=== PATIENT | male | born 1950 | race Asian ===

== ENCOUNTER 2019-02-16 11:30 | Inpatient (IN) | payer MEDICARE ==
[~2019-02-16] VITALS: Ht 162.6 cm; Wt 96.2 kg
--- NOTE | 2019-02-16 11:42 | NUR ---
mari, c/o bloody stool and diarrhea since yesterday, PT AWAKE, ALERT, -SOB, NAD NTOED, VSS, PENDING MD CUELLO
[2019-02-16] MEDS ORDERED: PANTOPRAZOLE 40 MG VIAL IV ONE (12:30)
[2019-02-16] MEDS ORDERED: IV NS 0.9% 1,000 ML BAG IV ONE (12:30)
[2019-02-16] MEDS ORDERED: ONDANSETRON HCL/PF 4 MG/2 ML VIAL IVP ONE (12:30)
[2019-02-16] MEDS ORDERED: ONDANSETRON HCL/PF 4 MG/2 ML VIAL ONE (12:36)
[2019-02-16] MEDS ORDERED: PANTOPRAZOLE 40 MG VIAL ONE (12:36)
[2019-02-16 12:42] LABS: BASOPHILS % (AUTO) 0.6 % (0.0-2.0); EOSINOPHILS % (AUTO) 5.1 % (0.0-6.0); HEMATOCRIT 36 % (39-51); HEMOGLOBIN 12.1 g/dL (13.5-17.5); LYMPHOCYTES # (AUTO) 1.3 /CMM (0.8-4.8); LYMPHOCYTES % (AUTO) 37.2 % (20.0-44.0); MEAN CORPUSCULAR HGB CONC 33 g/dl (31.0-36.0); MEAN CORPUSCULAR VOLUME 89 fL (80-96); MONOCYTES # (AUTO) 0.4 /CMM (0.1-1.30); NEUTROPHILS # (AUTO) 1.6 /CMM (1.8-8.9); NEUTROPHILS % (AUTO) 45.1 % (43.0-81.0); PLATELET COUNT (AUTO) 155 /CMM (150-450); RED BLOOD CELL COUNT(AUTO) 4.09 MIL/uL (4.5-6.0); WHITE BLOOD COUNT (AUTO) 3.5 K/uL (4.3-11.0)
[2019-02-16 12:55] LABS: CREATININE 1.2 mg/dL (0.6-1.3); POTASSIUM 3.9 mmol/L (3.5-5.1)
[2019-02-16 12:58] LABS: OCCULT BLOOD STOOL POSITIVE (NEGATIVE)
[2019-02-16 13:00] LABS: ALBUMIN 2.9 g/dL (3.4-5.0); BILIRUBIN,DIRECT 0.1 mg/dL (0.0-0.2); BILIRUBIN,TOTAL 0.2 mg/dL (0.2-1.0); TOTAL PROTEIN, SERUM 6.3 g/dL (6.4-8.2)
[2019-02-16] MEDS ORDERED: FEBU40TA3 PO (13:29)
[2019-02-16] MEDS ORDERED: TAMS-12 PO (13:29)
[2019-02-16] MEDS ORDERED: OLME40TA18 PO (13:29)
[2019-02-16] MEDS ORDERED: OMEP-293 PO (13:29)
[2019-02-16] MEDS ORDERED: AMLO5TAB9 PO (13:29)
--- NOTE | 2019-02-16 14:49 | NUR ---
CALLED [employer]. ANALYTICAL STATISTICIAN WAS PAGED.
--- NOTE | 2019-02-16 14:54 | NUR ---
CALLED [facility] FOR TELE BED
[2019-02-16] MEDS ORDERED: Z GUARD REMEDY 2 OZ OINT TP PRN (15:30)
[2019-02-16] MEDS ORDERED: MAG HYDROX/AL HYDROX/SIMETH 30 ML UDC PO PRN (15:30)
[2019-02-16] MEDS ORDERED: ONDANSETRON HCL/PF 4 MG/2 ML VIAL IVP PRN (15:30)
[2019-02-16] MEDS ORDERED: MAGNESIUM HYDROXIDE 30 ML UDC PO PRN (15:30)
[2019-02-16] MEDS ORDERED: ACETAMINOPHEN 325 MG TABLET PO PRN (15:30)
[2019-02-16] MEDS ORDERED: HYDROCODONE/APAP 5/325MG 1 EACH TABLET PO PRN (15:30)
--- NOTE | 2019-02-16 15:38 | NUR ---
report given to may
--- NOTE | 2019-02-16 15:49 | NUR ---
transported to [facility]
[2019-02-16 15:55] VITALS: BP 148/85
--- NOTE | 2019-02-16 16:30 | NUR ---
MS COSMETIC SALES ASSISTANT NOTES RECEIVED PT FROM ER DEPT VIA WHEELCHAIR. PT ORIGINALLY FROM HOME. PT A/O X4, MANDARIN SPEAKING, BUT CAN UNDERSTAND AND SPEAK MONGOLIAN. AMBULATORY. PT TOLERATING RA, WITH NO ACUTE RESPIRATORY DISTRESS NOTED. PT DENIES ANY PAIN OR DISCOMFORT AT THIS TIME. PIV TO LAC G20, FLUSHED WITH NS, INTACT AND OPERATIONAL. PT ALSO DENIES ANY CONCERNS OR QUESTIONS. PT ABLE TO PROVIDE MEDICAL HISTORY AND ADMISSION INFORMATION. PT ORIENTED TO THE STAFF, ROOM, MEAL TIMES, ETC. PT KEPT COMFORTABLE. CALL LIGHT AND FLUIDS KEPT WITHIN REACH. PT'S BED IN LOWEST, LOCKED POSITION WITH SR X3. ADMITTING MD/KR MADE AWARE OF NEW PT AND AWAITING FOR ADMISSION ORDERS. WILL CONTINUE PLAN OF CARE.
--- NOTE | 2019-02-16 16:53 | NUR ---
MS RN NOTES SKIN ASSESSED, INTACT. NO PICTURES TAKEN AND FILED IN THE CHART.
--- NOTE | 2019-02-16 18:34 | NUR ---
MS RN CLOSING NOTES PT A/O X4, MANDARIN SPEAKING, BUT CAN UNDERSTAND AND SPEAK FAROESE. AMBULATORY. PT TOLERATING RA, WITH NO ACUTE RESPIRATORY DISTRESS NOTED. PT DENIES ANY PAIN OR DISCOMFORT AT THIS TIME. PIV TO LAC G20, FLUSHED WITH NS, INTACT AND OPERATIONAL. PT KEPT COMFORTABLE. ALL NEEDS AND CARE ATTENDED. CALL LIGHT AND FLUIDS KEPT WITHIN REACH. PT'S BED IN LOWEST, LOCKED POSITION WITH SR X3. WILL ENDORSE TO INCOMING NIGHT NURSE FOR OMID.
--- NOTE | 2019-02-16 19:15 | NUR ---
MS RN PM OPENING NOTES BEDSIDE REPORT RECIEVED FROM KRYSTAL CASANOVA. PT A/O X4, AWAKE IN BED. REVIEWED POC. PATIENT HAD ONE BM BEFORE ADMISSION IN ER THAT TESTED POSITIVE FOR OB PT WAS ADMITTED TODAY FOR UPPER GI BLEED. PT MANDARIN SPEAKING, BUT SPEAKS/UNDERSTANDS ARMENIAN. PT AMBULATORY DENIES THAT HE GETS DIZZY OR LIGHT HEADED DURING AMBULATION. PT TOLERATING RA, WITH NO ACUTE RESPIRATORY DISTRESS NOTED. VERBALIZED UNDERSTANDING TO CALL FOR ASSISTANCE NEEDED. BED DOWN LOCKED SR X2. WILL CONT TO MONITOR.
[2019-02-16 20:00] VITALS: BP 123/78
[2019-02-16] MEDS: PANTOPRAZOLE 40 MG VIAL IV SCH (21:04)
[2019-02-16] MEDS: IV NS 0.9% 1,000 ML IV PRN (21:09)
[2019-02-17 06:30] LABS: BASOPHILS % (AUTO) 0.2 % (0.0-2.0); HEMATOCRIT 34 % (39-51); HEMOGLOBIN 11.4 g/dL (13.5-17.5); LYMPHOCYTES # (AUTO) 1.2 /CMM (0.8-4.8); LYMPHOCYTES % (AUTO) 35.4 % (20.0-44.0); MEAN CORPUSCULAR HGB CONC 33 g/dl (31.0-36.0); MEAN CORPUSCULAR VOLUME 88 fL (80-96); MONOCYTES # (AUTO) 0.3 /CMM (0.1-1.30); MONOCYTES % (AUTO) 9.3 % (2.0-12.0); NEUTROPHILS # (AUTO) 1.6 /CMM (1.8-8.9); NEUTROPHILS % (AUTO) 49.1 % (43.0-81.0); PLATELET COUNT (AUTO) 155 /CMM (150-450); RED BLOOD CELL COUNT(AUTO) 3.86 MIL/uL (4.5-6.0); WHITE BLOOD COUNT (AUTO) 3.3 K/uL (4.3-11.0)
--- NOTE | 2019-02-17 06:47 | NUR ---
MS RN CLOSING NOTES PT A/O X4, AWAKE IN BED. REVIEWED POC. PATIENT DENIES HAVING ANY BM LAST NIGHT DURING MY SHIFT. PT MANDARIN SPEAKING, BUT SPEAKS/UNDERSTANDS MONTSERRATIAN. PT AMBULATORY. PT TOLERATING RA, WITH NO ACUTE RESPIRATORY DISTRESS NOTED. PT DENIES ANY PAIN OR DISCOMFORT AT THIS TIME. PIV TO LAC G20, RUNNING NS AT 75ML/HR WITH NO S/S OF INFILTRATION. CALL LIGHT AND FLUIDS KEPT WITHIN REACH. BED IN LOWEST, LOCKED POSITION WITH SR X2. WILL ENDORSE TO DAY SHIFT FOR OMID. .
[2019-02-17 06:59] LABS: CREATININE 1.2 mg/dL (0.6-1.3); PHOSPHORUS 2.9 mg/dL (2.5-4.9); POTASSIUM 3.8 mmol/L (3.5-5.1)
--- NOTE | 2019-02-17 07:00 | NUR ---
MS/RN Opening note Received patient AOx4, able to response all stimuli, denies any n/v, or discomfort. No s/s of dehydration observed. Skin is dry and warm to touch, intact IV site, respiratory even unlabored, kept low bed position with elevated HOB. Call light within reach, will continue to monitor.
[2019-02-17 08:18] VITALS: BP 114/80
[2019-02-17] MEDS: PANTOPRAZOLE 40 MG VIAL IV SCH (09:12)
--- NOTE | 2019-02-17 10:00 | NUR ---
Patient went to EGD, who signed consent of EGD and anesthesia, denies pain or discomfort in stable condition.
--- NOTE | 2019-02-17 11:15 | NUR ---
Pt came back from EGD procedure, v/s: t-98.5, bp-136/68, p-68, r-20 , denies pain or discomfort, in stable condition.
[2019-02-17] MEDS: IV NS 0.9% 1,000 ML IV PRN (12:03)
--- NOTE | 2019-02-17 15:30 | NUR ---
MS RN NOTES PATIENT REQUESTING TO BE DISCHARGE HOME STATES HE HAS A FLIGHT TO CATCH TOMORROW MORNING. DR. CASTILLO MADE AWARE ORDERS RECEIVED TO DISCHARGE PATIENT HOME WITH PRESCRIPTION OF PROTONIX 40MG DAILY #30. NOTED AND CARRIED OUT. DIETARY CONSULT REQUESTED FOR EDUCATION ON THE DIET TO BE FOLLOWED HOME.
[2019-02-17 16:03] VITALS: BP 100/68
--- NOTE | 2019-02-17 16:30 | NUR ---
Given discharge instruction include poultry picker prescription, diet, follow up primary MD using teach back technique, pt verbally understanding. Denies pain or discomfort, respiratory even, unlabored. Pt left facility accompanied by son and staff to the private car, refused ride on wheel chair.
== END 2019-02-17 16:30 | disposition home or self-care (01) | DRG 377 ==
LOC: ER 11:35 → TELE 15:33 → MED 16:20
PROVIDERS: ADMIT Internal Medicine; ATTEND Internal Medicine
PROC: 0DB68ZX Excision of Stomach, Via Natural or Artificial Opening Endoscopic, Diagnostic (ICD-10-PCS; principal; 2019-02-17)
DX: K26.4 Chronic or unspecified duodenal ulcer with hemorrhage (principal); N17.0 Acute kidney failure with tubular necrosis; D62 Acute posthemorrhagic anemia; K29.70 Gastritis, unspecified, without bleeding; D64.9 Anemia, unspecified; I10 Essential (primary) hypertension; N40.0 Benign prostatic hyperplasia without lower urinary tract symptoms; K21.9 Gastro-esophageal reflux disease without esophagitis; Z79.899 Other long term (current) drug therapy; E78.5 Hyperlipidemia, unspecified
CPT/HCPCS: 36415; 80048-TC; 80076-TC; 82272-TC; 83690-TC; 83735-TC; 84100-TC; 85025-TC; 85730-TC; 87081-TC; A6403; C9113; G0378; J2405; J2704; J3490; J7030